=== PATIENT | female | born 1945 | race Caucasian/White ===

== ENCOUNTER 2017-05-28 19:47 | Emergency (ER) | payer OTHER ==
[~2017-05-28] VITALS: Ht 154.9 cm; Wt 54.4 kg
[2017-05-28] MEDS ORDERED: ONDANSETRON HCL 4 MG/2 ML VIAL ONE (20:24)
[2017-05-28] MEDS ORDERED: SODIUM CHLORIDE 0.9% 1,000 ML IV ONE (20:30)
[2017-05-28] MEDS ORDERED: ONDANSETRON HCL 4 MG/2 ML VIAL IV ONE (20:30)
[2017-05-28] MEDS ORDERED: NALBUPHINE HCL 10 MG/1ml INJECTION IV ONE (20:30)
[2017-05-28 21:31] LABS: Basophils # (auto) 0 uL; Basophils % (auto) 0.2 % (0.0-2.0); Eosinophils # (auto) 0.1 uL; Eosinophils % (auto) 0.4 % (0.0-7.0); Hematocrit 40.8 % (36.0-46.0); Lymphocytes # (auto) 1.2 uL; Lymphocytes % (auto) 6.1 % (10.0-50.0); Mean Corpuscular Hemoglobin 22.3 pg (28.0-32.0); Mean Corpuscular Hgb Conc. 30.9 g/dL (32.0-36.0); Mean Corpuscular Volume 72.3 fL (80.0-100.0); Monocytes # (auto) 1.5 uL; Monocytes % (auto) 7.3 % (0.0-12.0); Neutrophils # (auto) 17.6 uL; Nucleated Red Blood Cells % 0.1 %; Platelet Count (auto) 332 10^3/uL (140-450); Red Blood Cells 5.64 10^6/uL (4.0-5.20); Red Cell Distribution Width 19.6 % (11.8-14.3); White Blood Cell 20.4 10^3/uL (4.4-10.8)
[2017-05-28 21:55] LABS: Hemoglobin 12.7 g/dL (12.2-16.2)
[2017-05-28 22:03] LABS: Alanine Aminotransferase 23 U/L (13-56); Albumin 3.5 g/dL (3.4-5.0); Alkaline Phosphatase 60 U/L (45-117); Amylase 999 U/L (25-115); Anion Gap 13 (5-15); Aspartate Aminotransferase 27 U/L (15-37); BUN/Creatinine Ratio 57.1; Bilirubin, Total 0.5 mg/dL (0.2-1.0); Blood Urea Nitrogen 44 mg/dL (7-18); Calcium 9.4 mg/dL (8.5-10.1); Carbon Dioxide 27 mmol/L (21-32); Chloride 103 mmol/L (98-107); GFR African American 95 mL/min; GFR Non-African American 78 mL/min; Glucose 119 mg/dL (74-106); Lipase 6439 U/L (73-393); Magnesium 2.3 mg/dL (1.6-2.6); Sodium 143 mmol/L (136-145); Total Protein 7.6 g/dL (6.4-8.2)
[2017-05-28 22:06] LABS: INR 2.72 (0.9-1.15); Partial Thromboplastin Time 39.4 sec (22.64-33.71); Prothrombin Time 29.9 sec (9.37-12.3)
[2017-05-28] MEDS ORDERED: cefTRIAXone 1GM/10ml IVPUSH 10 ML IV ONE (22:15)
[2017-05-28] MEDS ORDERED: metroNIDAZOLE 500MG/100ML 100 ML IV ONE (22:15)
[2017-05-29] MEDS ORDERED: ONDANSETRON HCL 4 MG/2 ML VIAL IV ONE ×2 (00:45→06:30)
[2017-05-29] MEDS ORDERED: MORPHINE SULFATE 4 MG/ML SYR/VIAL IV ONE ×2 (00:45→06:30)
[2017-05-29 07:29] VITALS: BP 123/44
== END 2017-05-29 08:01 | disposition short-term general hospital (02) ==
LOC: ER 19:47 → EDBD 19:47 → ER 05-29 03:10
DX: K85.90 Acute pancreatitis without necrosis or infection, unspecified (principal); D72.829 Elevated white blood cell count, unspecified; E86.0 Dehydration; E78.5 Hyperlipidemia, unspecified; I10 Essential (primary) hypertension
CPT/HCPCS: 36415; 71045; 74176; 76705; 80053; 82150; 83605; 83690; 83735; 84484; 85025; 85610; 85730; 87040; 93005; 96365; 96375; 96376; 99285; J2270; J2300; J2405; J3490; J7030

== ENCOUNTER 2018-06-25 17:32 | Emergency (ER) | payer OTHER ==
[~2018-06-25] VITALS: Ht 162.6 cm; Wt 45.4 kg
[2018-06-25 18:53] LABS: Basophils # (auto) 0 uL; Lymphocytes # (auto) 0.9 uL; Monocytes # (auto) 0.9 uL; White Blood Cell 5.5 10^3/uL (4.4-10.8)
[2018-06-25 18:55] LABS: Basophils % (auto) 0.5 % (0.0-2.0); Eosinophils # (auto) 0.2 uL; Eosinophils % (auto) 3.5 % (0.0-7.0); Hematocrit 40.2 % (36.0-46.0); Hemoglobin 12.5 g/dL (12.2-16.2); Lymphocytes % (auto) 15.6 % (10.0-50.0); Mean Corpuscular Hemoglobin 22.6 pg (28.0-32.0); Mean Corpuscular Hgb Conc. 31.2 g/dL (32.0-36.0); Mean Corpuscular Volume 72.5 fL (80.0-100.0); Monocytes % (auto) 16.2 % (0.0-12.0); Neutrophils # (auto) 3.5 uL; Neutrophils % (auto) 64.2 % (37.0-80.0); Nucleated Red Blood Cells % 0.2 %; Platelet Count (auto) 209 10^3/uL (140-450); Red Blood Cells 5.54 10^6/uL (4.0-5.20)
[2018-06-25 18:59] LABS: Red Cell Distribution Width 20.5 % (11.8-14.3)
[2018-06-25 19:04] LABS: Alanine Aminotransferase 20 U/L (13-56); Albumin 3.6 g/dL (3.4-5.0); Anion Gap 8 (5-15); Aspartate Aminotransferase 24 U/L (15-37); BUN/Creatinine Ratio 41.4; Blood Urea Nitrogen 29 mg/dL (7-18); Carbon Dioxide 25 mmol/L (21-32); Chloride 107 mmol/L (98-107); GFR African American 105 mL/min; GFR Non-African American 87 mL/min; Glucose 92 mg/dL (74-106); Potassium 4.1 mmol/L (3.5-5.1); Sodium 140 mmol/L (136-145)
[2018-06-25 19:13] LABS: Alkaline Phosphatase 50 U/L (45-117); Bilirubin, Total 0.5 mg/dL (0.2-1.0); Total Protein 7.3 g/dL (6.4-8.2)
[2018-06-25 20:10] LABS: Urine Bacteria FEW /hpf (None Seen); Urine Blood Negative /uL (Negative); Urine Mucus FEW (None Seen); Urine Specific Gravity 1.022 (1.001-1.035); Urine WBC 76 /hpf (0 - 5)
[2018-06-25] MEDS ORDERED: LEVOFLOXACIN 500MG 100 ML IV ONE (21:00)
[2018-06-25 23:33] VITALS: BP 136/62
== END 2018-06-25 23:42 | disposition short-term general hospital (02) ==
LOC: ER 17:32 → EDBD 17:32 → EDUNIT# 17:32 → ER 23:42
DX: J18.9 Pneumonia, unspecified organism (principal); R41.82 Altered mental status, unspecified; N39.0 Urinary tract infection, site not specified; E78.5 Hyperlipidemia, unspecified; I11.0 Hypertensive heart disease with heart failure; I50.9 Heart failure, unspecified; Z96.643 Presence of artificial hip joint, bilateral
CPT/HCPCS: 36415; 71045; 74176; 80053; 81001; 83880; 84484; 85025; 93005; 94761; 96365; 99285; J1956

== ENCOUNTER 2018-11-23 19:53 | Emergency (ER) | payer OTHER ==
[~2018-11-23] VITALS: Ht 167.6 cm; Wt 44.9 kg
[2018-11-23 21:12] LABS: Basophils # (auto) 0 uL; Lymphocytes # (auto) 1.2 uL; Mean Corpuscular Hemoglobin 21.3 pg (28.0-32.0); Monocytes # (auto) 0.8 uL
[2018-11-23 21:14] LABS: Basophils % (auto) 0.6 % (0.0-2.0); Eosinophils # (auto) 0.2 uL; Eosinophils % (auto) 2.9 % (0.0-7.0); Hematocrit 38.7 % (36.0-46.0); Lymphocytes % (auto) 21.3 % (10.0-50.0); Mean Corpuscular Volume 68.7 fL (80.0-100.0); Monocytes % (auto) 13.9 % (0.0-12.0); Neutrophils # (auto) 3.4 uL; Neutrophils % (auto) 61.3 % (37.0-80.0); Nucleated Red Blood Cells % 0.1 %; Platelet Count (auto) 217 10^3/uL (140-450); Red Blood Cells 5.64 10^6/uL (4.0-5.20); Red Cell Distribution Width 18.9 % (11.8-14.3); White Blood Cell 5.6 10^3/uL (4.4-10.8)
[2018-11-23 21:28] LABS: INR 3.04 (0.9-1.15); Partial Thromboplastin Time 37.6 sec (23.64-32.05)
[2018-11-23 21:31] LABS: Albumin 3.8 g/dL (3.4-5.0); Anion Gap 10 (5-15); Blood Urea Nitrogen 24 mg/dL (7-18); Calcium 8.9 mg/dL (8.5-10.1); Carbon Dioxide 27 mmol/L (21-32); Chloride 105 mmol/L (98-107); Glucose 83 mg/dL (74-106); Magnesium 2.3 mg/dL (1.6-2.6); Potassium 3.4 mmol/L (3.5-5.1); Sodium 142 mmol/L (136-145)
[2018-11-23 21:33] LABS: Alanine Aminotransferase 20 U/L (13-56); Aspartate Aminotransferase 30 U/L (15-37); BUN/Creatinine Ratio 33.8; GFR African American 103 mL/min; GFR Non-African American 86 mL/min
[2018-11-23 21:38] LABS: Alkaline Phosphatase 40 U/L (45-117); Bilirubin, Total 0.4 mg/dL (0.2-1.0); Total Protein 7.6 g/dL (6.4-8.2)
[2018-11-23 22:46] LABS: Urine Bacteria MANY /hpf (None Seen); Urine Blood Negative /uL (Negative); Urine Hyaline Cast FEW /lpf (0 - 2); Urine Mucus FEW (None Seen); Urine Specific Gravity 1.022 (1.001-1.035); Urine WBC 40 /hpf (0 - 5)
[2018-11-23] MEDS ORDERED: cefTRIAXone 1GM/50ML D5W 50 ML IV ONE (23:15)
[2018-11-24 00:29] VITALS: BP 131/47
== END 2018-11-24 04:31 | disposition left against medical advice (07) ==
LOC: EDBD 19:53 → ER 20:00
DX: R41.82 Altered mental status, unspecified (principal); N39.0 Urinary tract infection, site not specified; E78.5 Hyperlipidemia, unspecified; I11.0 Hypertensive heart disease with heart failure; I50.9 Heart failure, unspecified; G35 Multiple sclerosis; Z53.29 Procedure and treatment not carried out because of patient's decision for other reasons
CPT/HCPCS: 36415; 70450; 71045; 80053; 81001; 83605; 83735; 83880; 84484; 85025; 85610; 85730; 87040; 93005; 96365; 99284; J0696

== ENCOUNTER → 2019-07-11 | Emergency (ER) | payer OTHER ==
[~2019-07-11] VITALS: Ht 157.5 cm; Wt 45.4 kg
[~2019-07-11] MED LIST: MORPHINE SULF INJ 2 MG/ML SYRINGE 1ML IV ONE; ONDANSETRON HCL 4 MG/2 ML VIAL IV ONE; SODIUM CHLORIDE 0.9% 500 ML IVB ONE
[2019-07-11 10:28] LABS: Basophils # (auto) 0 10 ^3/uL (0-0.2); Basophils % (auto) 0.5 % (0.0-2.0); Eosinophils # (auto) 0 10 ^3/uL (0-0.8); Eosinophils % (auto) 0.5 % (0.0-7.0); Hematocrit 46.7 % (36.0-46.0); Hemoglobin 14.6 g/dL (12.2-16.2); Lymphocytes # (auto) 0.8 10 ^3/uL (0.4-5.4); Lymphocytes % (auto) 12.6 % (10.0-50.0); Mean Corpuscular Hemoglobin 23.4 pg (28.0-32.0); Mean Corpuscular Hgb Conc. 31.4 g/dL (32.0-36.0); Mean Corpuscular Volume 74.6 fL (80.0-100.0); Monocytes # (auto) 0.5 10 ^3/uL (0-1.3); Monocytes % (auto) 8.2 % (0.0-12.0); Neutrophils % (auto) 78.2 % (37.0-80.0); Nucleated Red Blood Cells % 0.1 %; Platelet Count (auto) 232 10^3/uL (140-450); Red Blood Cells 6.26 10^6/uL (4.0-5.20); White Blood Cell 6.4 10^3/uL (4.4-10.8)
[2019-07-11 10:29] LABS: Red Cell Distribution Width 21.2 % (11.8-14.3)
[2019-07-11 10:41] LABS: Magnesium 2.3 mg/dL (1.6-2.6)
[2019-07-11 10:42] LABS: Albumin 3.9 g/dL (3.4-5.0); Anion Gap 16 (5-15); Blood Urea Nitrogen 20 mg/dL (7-18); Calcium 9.3 mg/dL (8.5-10.1); Carbon Dioxide 23 mmol/L (21-32); Chloride 100 mmol/L (98-107); Glucose 218 mg/dL (74-106); Potassium 3.4 mmol/L (3.5-5.1); Sodium 139 mmol/L (136-145)
[2019-07-11 10:47] LABS: Alanine Aminotransferase 21 U/L (13-56); Alkaline Phosphatase 49 U/L (45-117); Aspartate Aminotransferase 32 U/L (15-37); BUN/Creatinine Ratio 26.3; Bilirubin, Total 0.4 mg/dL (0.2-1.0); GFR African American 95 mL/min; GFR Non-African American 79 mL/min; Total Protein 8.4 g/dL (6.4-8.2)
[2019-07-11 11:04] LABS: Urine Bacteria NONE SEEN /hpf (None Seen); Urine Blood Negative /uL (Negative); Urine Mucus FEW (None Seen); Urine Specific Gravity 1.021 (1.001-1.035); Urine WBC 1 /hpf (0 - 5)
[2019-07-11 15:49] VITALS: BP 136/55
== END | disposition home or self-care (01) ==
LOC: EDUNIT# 09:47 → ER 09:56 → EDBD 09:56
DX: R41.82 Altered mental status, unspecified (principal); E86.0 Dehydration; I11.0 Hypertensive heart disease with heart failure; I50.9 Heart failure, unspecified; E78.5 Hyperlipidemia, unspecified
CPT/HCPCS: 36415; 70450; 71045; 80053; 80320; 81001; 83605; 83735; 84484; 85025; 87040; 96361; 96374; 96375; 99285; J2270; J2405; 93005